=== PATIENT | male | born 1945 | race Native Hawaiian/Other Pacific Islander ===

== ENCOUNTER 2016-01-30 10:12 | Inpatient (IN) | payer OTHER ==
[~2016-01-30 10:12] MED LIST: ACET-206 PO; ALUMSUS6 PO; CLON0.1T16 PO; DEXTLIQ63 PO; DIOVAN HCT160 MG/25 PO; FLUT0.05 NAS; MAGNSUS68 PO; MOBIC7.5 M1 PO
== END 2016-03-01 08:00 | disposition still patient (30) ==
LOC: PAVC 10:12 → EDBD 03-01 08:00 → PAVC 03-01 08:00
PROVIDERS: ADMIT Internal Medicine
DX: Z51.89 Encounter for other specified aftercare (principal)

== ENCOUNTER 2016-03-01 09:00 | Inpatient (IN) | payer OTHER | END 2016-04-01 12:35 | disposition still patient (30) | LOC: PAVC 09:00 → EDBD 04-01 12:35 → PAVC 04-01 12:35 | PROVIDERS: ADMIT Internal Medicine | DX: Z51.89 Encounter for other specified aftercare (principal) ==

== ENCOUNTER 2016-03-06 04:49 | Outpatient (CLI) | payer OTHER ==
[2016-03-06 06:25] LABS: PLATELET COUNT 139 K/uL (142-355)
[2016-03-06 06:35] LABS: POTASSIUM 4.5 mmol/L (3.6-5.2)
== END 2016-03-06 05:49 | disposition home or self-care (01) ==
LOC: EDBD 04:49 → LAB 04:49
PROVIDERS: Internal Medicine
DX: I69.951 Hemiplegia and hemiparesis following unspecified cerebrovascular disease affecting right dominant side (principal)
CPT/HCPCS: 36415; 80053; 85027

== ENCOUNTER 2016-04-01 12:50 | Inpatient (IN) | payer OTHER | END 2016-04-29 13:20 | disposition still patient (30) | LOC: PAVC 12:50 → EDBD 04-29 13:20 → PAVC 04-29 13:20 | PROVIDERS: ADMIT Internal Medicine | DX: Z51.89 Encounter for other specified aftercare (principal) ==

== ENCOUNTER 2016-04-08 10:48 | Outpatient (CLI) | payer OTHER | END 2016-04-08 19:08 | disposition home or self-care (01) | LOC: RAD 10:48 → EDBD 10:48 → RAD 19:08 | DX: M25.571 Pain in right ankle and joints of right foot (principal) ==

== ENCOUNTER 2016-04-29 13:33 | Inpatient (IN) | payer OTHER | END 2016-05-30 08:13 | disposition still patient (30) | LOC: PAVC 13:33 → EDBD 05-30 08:13 | PROVIDERS: ADMIT Internal Medicine | DX: Z51.89 Encounter for other specified aftercare (principal) ==

== ENCOUNTER 2016-05-25 15:46 | Outpatient (CLI) | payer OTHER | END 2016-05-25 19:32 | disposition home or self-care (01) | LOC: LAB 15:46 → EDP 15:46 → EDBD 15:46 → LAB 19:32 | DX: M10.00 Idiopathic gout, unspecified site (principal) | CPT/HCPCS: 84550 ==

== ENCOUNTER 2016-05-30 08:35 | Inpatient (IN) | payer OTHER | END 2016-06-29 10:56 | disposition still patient (30) | LOC: PAVC 08:35 → EDBD 08:35 → PAVC 06-29 10:56 | PROVIDERS: ADMIT Internal Medicine | DX: Z51.89 Encounter for other specified aftercare (principal) ==

== ENCOUNTER 2016-06-28 08:35 | Outpatient (CLI) | payer OTHER | END 2016-06-28 19:45 | disposition home or self-care (01) | LOC: LAB 08:35 → EDBD 08:35 → LAB 19:45 | DX: Z16.24 Resistance to multiple antibiotics (principal) | CPT/HCPCS: 87081 ==

== ENCOUNTER 2016-06-29 11:20 | Inpatient (IN) | payer OTHER | END 2016-07-30 10:45 | disposition still patient (30) | LOC: PAVC 11:20 | PROVIDERS: ADMIT Internal Medicine | DX: Z51.89 Encounter for other specified aftercare (principal) ==

== ENCOUNTER 2016-07-30 10:57 | Inpatient (IN) | payer OTHER | END 2016-08-29 16:08 | disposition still patient (30) | LOC: PAVC 10:57 | PROVIDERS: ADMIT Internal Medicine | DX: Z51.89 Encounter for other specified aftercare (principal) ==

== ENCOUNTER 2016-08-29 16:28 | Inpatient (IN) | payer OTHER | END 2016-09-29 12:58 | disposition still patient (30) | LOC: PAVC 16:28 | PROVIDERS: ADMIT Internal Medicine | DX: Z51.89 Encounter for other specified aftercare (principal) ==

== ENCOUNTER 2016-08-31 03:12 | Outpatient (CLI) | payer OTHER ==
[2016-08-31 04:03] LABS: PLATELET COUNT 153 K/uL (142-355)
[2016-08-31 04:35] LABS: POTASSIUM 5.3 mmol/L (3.6-5.2)
== END 2016-08-31 04:15 | disposition home or self-care (01) ==
LOC: LAB 03:12
PROVIDERS: Internal Medicine
DX: I10 Essential (primary) hypertension (principal); D64.89 Other specified anemias
CPT/HCPCS: 36415; 80053; 85027

== ENCOUNTER 2016-09-25 14:19 | Outpatient (CLI) | payer OTHER | END 2016-09-25 19:15 | disposition home or self-care (01) | LOC: CT 14:19 | DX: R26.89 Other abnormalities of gait and mobility (principal) ==

== ENCOUNTER 2016-09-29 14:02 | Inpatient (IN) | payer OTHER | END 2016-10-30 09:45 | disposition still patient (30) | LOC: PAVC 14:02 | PROVIDERS: ADMIT Internal Medicine | DX: Z51.89 Encounter for other specified aftercare (principal) ==

== ENCOUNTER 2016-10-21 09:46 | Outpatient (CLI) | payer OTHER ==
[2016-10-21 10:03] LABS: PLATELET COUNT 188 K/uL (142-355)
[2016-10-21 10:18] LABS: POTASSIUM 5.2 mmol/L (3.6-5.2)
== END 2016-10-21 10:50 | disposition home or self-care (01) ==
LOC: LAB 09:46
PROVIDERS: Internal Medicine
DX: R41.0 Disorientation, unspecified (principal)
CPT/HCPCS: 36415; 80053; 81000; 85027; 87088

== ENCOUNTER 2016-10-21 10:01 | Outpatient (CLI) | payer OTHER | END 2016-10-21 11:05 | disposition home or self-care (01) | LOC: RAD 10:01 | DX: R23.0 Cyanosis (principal) ==

== ENCOUNTER 2016-10-30 10:24 | Inpatient (IN) | payer OTHER | END 2016-11-29 09:36 | disposition still patient (30) | LOC: PAVC 10:24 | PROVIDERS: ADMIT Internal Medicine | DX: Z51.89 Encounter for other specified aftercare (principal) ==

== ENCOUNTER 2016-11-16 15:28 | Outpatient (CLI) | payer OTHER | END 2016-11-16 16:30 | disposition home or self-care (01) | LOC: LAB 15:28 | DX: M10.9 Gout, unspecified (principal) | CPT/HCPCS: 84550 ==

== ENCOUNTER 2016-11-29 09:54 | Inpatient (IN) | payer OTHER | END 2016-12-30 14:19 | disposition still patient (30) | LOC: PAVC 09:54 | PROVIDERS: ADMIT Internal Medicine ==

== ENCOUNTER 2016-12-30 14:53 | Inpatient (IN) | payer OTHER | END 2017-01-29 10:29 | disposition still patient (30) | LOC: PAVC 14:53 | PROVIDERS: ADMIT Internal Medicine ==

== ENCOUNTER 2017-01-29 10:50 | Inpatient (IN) | payer OTHER | END 2017-02-23 08:00 | disposition E | LOC: PAVC 10:50 | PROVIDERS: ADMIT Internal Medicine ==

== ENCOUNTER 2017-02-22 22:30 | Emergency (ER) | payer OTHER ==
[~2017-02-22] VITALS: Ht 172.7 cm; Wt 78.9 kg
== END 2017-02-23 | disposition expired ==
LOC: ED 22:30
PROC: 5A12012 Performance of Cardiac Output, Single, Manual (ICD-10-PCS; principal; 2017-02-22)
DX: I46.9 Cardiac arrest, cause unspecified (principal)
CPT/HCPCS: 92950; 96374; 96375; 96376; 99291; J0171; J3490